=== PATIENT | male | born 1965 | race Caucasian/White ===

== ENCOUNTER → 2017-06-22 | Outpatient (CLI) | payer BC ==
[~2017-06-22] MED LIST: ALBU8.5H4 IH; BUDE6HFA IH; HYDR1TAB PO
== END ==
LOC: WOUNDCARE 08:48
PROVIDERS: ATTEND Surgery
DX: T23.252A Burn of second degree of left palm, initial encounter (principal); T65.222A Toxic effect of tobacco cigarettes, intentional self-harm, initial encounter
CPT/HCPCS: 16020

== ENCOUNTER → 2018-04-20 | Outpatient (CLI) | payer BC ==
--- NOTE | 2018-04-20 11:29 | Diagnostic Imaging Report ---
PROCEDURE: CT cervical spine without contrast. TECHNIQUE: Multiple contiguous axial images were obtained through the cervical spine without the use of intravenous contrast. Sagittal and coronal reformations were then performed. INDICATION: Neck pain and right-sided arm pain for three weeks. COMPARISON: No prior studies are available for comparison. FINDINGS: There is straightening of the normal cervical lordotic curvature. There is multilevel degenerative disc disease with variable disc space narrowing and marginal spurring. There appears to be a prominent wide-based midline disc bulge at the C4-5 level indenting the ventral thecal sac and narrowing the central canal. There is also significant bilateral neural foraminal stenosis at C5-6 level due to uncovertebral joint degenerative change. No fractures are identified. The prevertebral tissues are within normal limits. Odontoid is intact. IMPRESSION: 1. Cervical spondylosis. No acute bony abnormality is detected. 2. Prominent disc bulge at C4-5 level with central canal narrowing. 3. Bilateral C5-6 neural foraminal stenosis. Dictated by: Dictated on workstation # [id number]
== END ==
LOC: RAD 10:43
PROVIDERS: ATTEND Nurse Practitioner Family
DX: M47.812 Spondylosis without myelopathy or radiculopathy, cervical region (principal); M50.221 Other cervical disc displacement at C4-C5 level; M48.02 Spinal stenosis, cervical region
CPT/HCPCS: 72125